=== PATIENT | male | born 1990 | race Hispanic/Latino ===

== ENCOUNTER → 2025-07-21 | Day surgery (SDC) | payer BC ==
[~2025-07-21] MED LIST: LIDOCAINE HCL 2% LOCAL INJ 5 ML SDV VIAL INJ ONE; METOCLOPRAMIDE HCL 10 MG/2ML VIAL ONE; OMEPRAZOLE40 MG PO; PANTOPRAZOLE SO40 MG PO; PROPOFOL IV EMULSION 10 MG/ML 20 ML VIAL ONE
[2025-07-21] MEDS: LACTATED RINGER'S 1,000 ML ONE (14:00)
[2025-07-21 15:09] VITALS: TEMP 97
[2025-07-21 15:35] VITALS: BP 119/69; PULSE 70; RESP 18; O2SAT 99
== END | disposition home or self-care (01) ==
LOC: OR 12:00
PROVIDERS: ATTEND Internal Medicine Gastroenterology
DX: K21.00 Gastro-esophageal reflux disease with esophagitis, without bleeding (principal); K29.70 Gastritis, unspecified, without bleeding; K22.0 Achalasia of cardia; R03.0 Elevated blood-pressure reading, without diagnosis of hypertension; Z71.89 Other specified counseling; Z68.25 Body mass index [BMI] 25.0-25.9, adult; Z71.3 Dietary counseling and surveillance
CPT/HCPCS: 43239; J2003; J2470; J2704; J2765; J7121